=== PATIENT | male | born 1975 | race Caucasian/White ===

== ENCOUNTER 2020-11-15 09:36 | Emergency (ER) | payer SELFPAY ==
[~2020-11-15] VITALS: Ht 170.2 cm; Wt 90.7 kg
[2020-11-15 09:36] VITALS: BP_SYST 118
[2020-11-15] MEDS ORDERED: LIDOCAINE/EPI 1% 1:100000 20 ML VIAL INJ ONE ×2 (10:00→10:02)
== END 2020-11-15 11:12 | disposition home or self-care (01) ==
LOC: SED 09:36
DX: L02.414 Cutaneous abscess of left upper limb (principal)
CPT/HCPCS: 99283

== ENCOUNTER 2023-08-19 18:54 | Emergency (ER) | payer BC ==
[~2023-08-19] VITALS: Ht 170.2 cm; Wt 77.1 kg
[2023-08-19 19:45] VITALS: BP_SYST 115; PULSE 81; RESP 18; TEMP 97.8; O2SAT 97
[2023-08-19 21:30] LABS: BASOPHILS % (AUTO) 0.6 % (0.0-2.0); EOSINOPHILS # (AUTO) 0.1 K/uL (0.0-0.4); EOSINOPHILS % (AUTO) 0.9 % (0.0-4.0); HEMATOCRIT 39.1 % (36-54); HEMOGLOBIN 12.7 g/dL (14.0-18.0); LYMPHOCYTES # (AUTO) 2.5 K/uL (1.0-5.5); LYMPHOCYTES % (AUTO) 38.7 % (20.5-51.5); MEAN CORPUSCULAR HEMOGLOBIN 29 pg (27-31); MEAN CORPUSCULAR HGB CONC 32 % (32-36); MEAN CORPUSCULAR VOLUME 89 fL (79.0-98.0); MONOCYTES # (AUTO) 0.6 K/uL (0.0-1.0); MONOCYTES % (AUTO) 8.6 % (1.7-9.3); NEUTROPHILS # (AUTO) 3.3 K/uL (1.8-7.7); NEUTROPHILS % (AUTO) 51.2 % (40.0-70.0); PLATELET COUNT (AUTO) 314 K/uL (130-430); RED CELL DISTRIBUTION WIDTH 13.6 % (9.0-15.0); WHITE BLOOD COUNT (AUTO) 6.5 K/uL (4.8-10.8)
[2023-08-19 22:10] LABS: CALCIUM 9.2 mg/dL (8.4-11.0); CREATININE 0.93 mg/dL (0.55-1.30); POTASSIUM 4.2 mmol/L (3.5-5.1)
[2023-08-19 22:15] LABS: ALBUMIN 3.6 g/dL (3.4-4.8); TOTAL BILIRUBIN 0.3 mg/dL (0.0-1.0); TOTAL PROTEIN, SERUM 7.5 g/dL (6.4-8.3)
[2023-08-19] MEDS ORDERED: cefTRIAXone 1 GM in D5W 50 ML IV ONE (22:45)
[2023-08-19] MEDS ORDERED: VANCOMYCIN HCL 1.25 GM/NS 250 ML IV ONE (22:45)
[2023-08-19] MEDS ORDERED: cefTRIAXone 1 GM VIAL ONE (23:14)
[2023-08-20] MEDS ORDERED: VANCOMYCIN HCL 1000 MG/VIAL IV ONE (00:17)
[2023-08-20] MEDS ORDERED: VANCOMYCIN HCL 500 MG/VIAL IV ONE (00:18)
[2023-08-20] MEDS ORDERED: CEPH250C PO (00:41)
[2023-08-20] MEDS ORDERED: SULF1TAB48 PO (00:41)
== END 2023-08-19 23:15 | disposition left against medical advice (07) ==
LOC: SED 18:54
DX: L02.211 Cutaneous abscess of abdominal wall (principal); R19.04 Left lower quadrant abdominal swelling, mass and lump; Z79.899 Other long term (current) drug therapy
CPT/HCPCS: 99285; 74177; 96365; 80053; 85025; 36415; 76376; J0696; Q9967; J3370

== ENCOUNTER 2023-10-15 11:41 | Emergency (ER) | payer BC ==
[~2023-10-15] VITALS: Ht 170.2 cm; Wt 77.1 kg
[2023-10-15 11:41] VITALS: BP_SYST 123; PULSE 80; RESP 18; TEMP 97.5; O2SAT 98
[~2023-10-15 11:41] MED LIST: CEPH250C PO; SULF1TAB48 PO
[2023-10-15] MEDS ORDERED: IBUP-1971 PO (13:49)
[2023-10-15] MEDS ORDERED: TRAM50TA2 PO (13:49)
== END 2023-10-15 13:57 | disposition home or self-care (01) ==
LOC: SED 11:41
DX: S13.9XXA Sprain of joints and ligaments of unspecified parts of neck, initial encounter (principal); M25.462 Effusion, left knee; Z79.899 Other long term (current) drug therapy; V49.49XA Driver injured in collision with other motor vehicles in traffic accident, initial encounter; Y93.89 Activity, other specified; Y92.89 Other specified places as the place of occurrence of the external cause; Y99.8 Other external cause status
CPT/HCPCS: 72040-TC; 73564; 99284

== ENCOUNTER 2023-10-22 10:41 | Emergency (ER) | payer BC ==
[~2023-10-22] VITALS: Ht 170.2 cm; Wt 83.9 kg
[2023-10-22 10:41] VITALS: BP_SYST 148; PULSE 86; RESP 19; TEMP 97.9; O2SAT 97
[~2023-10-22 10:41] MED LIST changes: +IBUP-1971 PO; +TRAM50TA2 PO
[2023-10-22] MEDS ORDERED: HYDR-3917 PO (11:06)
[2023-10-22 11:26] VITALS: BP_SYST 142; PULSE 78; RESP 18; TEMP 98.7; O2SAT 97
== END 2023-10-22 11:25 | disposition home or self-care (01) ==
LOC: SED 10:41
DX: M25.562 Pain in left knee (principal); M54.2 Cervicalgia; Z79.899 Other long term (current) drug therapy
CPT/HCPCS: 99283